=== PATIENT | male | born 1965 | race Two or more races ===

== ENCOUNTER 2023-07-16 09:57 | Emergency (ER) | payer MEDICAID, OTHER, SELFPAY ==
[2023-07-16 10:03] VITALS: BP 170/71; PULSE 51; RESP 16; TEMP 36.6; O2SAT 98; BMI 27.6
[2023-07-16 11:10] VITALS: BP 193/89; PULSE 52; RESP 16; TEMP 36.6; O2SAT 99
--- NOTE | 2023-07-16 11:20 | ECG_ITS ---
Test Reason : HYPERTENSION Blood Pressure : / mmHG Vent. Rate : 051 BPM Atrial Rate : 051 BPM P-R Int : 170 ms QRS Dur : 128 ms QT Int : 450 ms P-R-T Axes : -27 012 -07 degrees QTc Int : 414 ms Sinus bradycardia Right bundle branch block T wave abnormality, consider inferior ischemia Abnormal ECG No previous ECGs available Referred By: Nilam Lewis Electronically Signed By:Declan Madden
[2023-07-16] MEDS: Valsartan 160 MG TABLET PO (11:26)
[2023-07-16] MEDS: hydroCHLOROthiazide 12.5 MG TABLET PO (11:26)
[2023-07-16] MEDS: amLODIPine Besylate 10 MG TABLET PO (11:26)
--- NOTE | 2023-07-16 11:41 | ED.GENADULT ---
HPI - General Adult General Chief complaint: General Medical Stated complaint: High blood pressure Time Seen by Provider: 07/16/23 10:40 Source: patient, family and park interpreter Mode of arrival: ambulatory History of Present Illness HPI narrative: 58-year-old male with longstanding hypertension, recently moved here from [facility], he has been evaluated through the [facility] system and started on his previous medication. Patient states that he has a headache if he does not take his blood pressure medication he otherwise denies any chest pain or visual/speech deficits in denies any unilateral weakness/numbness/tingling. Patient was seen 1 week ago and states that he has been taking his blood pressure medication as prescribed with the exception of this morning. Related Data Allergies Allergy/AdvReac Type Severity Reaction Status Date / Time No Known Allergies Allergy Verified 07/16/23 10:02 Review of Systems Review of Systems: Pertinent positives and negatives as stated in HPI [facility] Past Medical History Source: nursing notes reviewed Social History Social History Alcohol intake: never Smoked in Last 30 Days: No Use of substances other than those prescribed or required for medical reasons: No Advance Directives: No Advance Directives Information Provided: Yes Physical Exam ED Vital Signs: Vital Signs - 24 hr 07/16/23 10:03 07/16/23 11:10 07/16/23 12:03 Temperature 97.9 F 97.9 F Pulse Rate 51 52 54 Respiratory Rate 16 16 16 Blood Pressure 170/71 H 193/89 H 193/89 H Pulse Oximetry 98 99 99 Oxygen Delivery Method Room Air Room Air Room Air 07/16/23 13:05 Temperature Pulse Rate 53 Respiratory Rate 12 Blood Pressure 147/87 H Pulse Oximetry 96 Oxygen Delivery Method Room Air BMI result Body Mass Index 27.6 VITAL SIGNS: Reviewed. GENERAL: Well developed, well nourished, in no acute distress. HEAD: Normocephalic/atraumatic EYES: PERRLA, EOMI EARS: Ext canals without abnormality NOSE: Nares patent bilateral OROPHARYNX: no oral lesions noted, posterior pharynx clear NECK: Supple, no adenopathy LUNGS: Normal breath sounds. No adventitious sounds or accessory muscle use. SpO2<99> CARDIOVASCULAR: Regular rate and rhythm without noted murmurs ABDOMEN: Soft, non-tender, non-distended with bowel sounds. MUSCULOSKELETAL: No tenderness, deformities, or effusions noted on gross inspection. EXTREMITIES: No cyanosis, clubbing or edema. SKIN: Inspection of the skin reveals no rashes NEUROLOGIC: Alert and oriented x 4. Strength and sensation to light touch were grossly intact x 4, no facial asymmetry, no pronator drift, cranial nerves 2-12 are grossly intact. Medications Administered Discontinued Medications Generic Name Dose Route Start Last Admin Trade Name Shaquilleq PRN Reason Stop Dose Admin Amlodipine Besylate 10 mg 07/16/23 11:21 07/16/23 11:26 Amlodipine Besylate 10 Mg Tablet PO 07/16/23 11:22 10 mg ONCE ONE Administration Protocol Hydrochlorothiazide 12.5 mg 07/16/23 11:21 07/16/23 11:26 Hydrochlorothiazide 12.5 Mg Tablet PO 07/16/23 11:22 12.5 mg ONCE ONE Administration Protocol Valsartan 160 mg 07/16/23 11:21 07/16/23 11:26 Valsartan 160 Mg Tablet PO 07/16/23 11:22 160 mg ONCE ONE Administration Protocol Medical Decision Making Medical Decision Making [facility] Narrative: 58-year-old male with history and clinical presentation consistent with headache likely secondary to elevated blood pressure, the does not seem to be any history of alcohol or drug use and on review of EKG there is no evidence of STEMI and changes are likely secondary to chronic hypertension. Will evaluate with lab work, urinalysis there are no focal deficits in so at this time will not proceed with head CT. Patient given Norvasc/valsartan/hydrochlorothiazide. I reviewed all investigations and hematologic indices are grossly within normal limits, there is no leukocytosis or left shift, there is no anemia or thrombocytopenia. Chemistry indices are grossly within normal limits without evidence of ARTURO her electrolytes/liver enzyme abnormalities. Urinalysis is negative for UTI or proteinuria. EKG demonstrates changes consistent with chronic hypertension. 1310: On re-evaluation patient's blood pressure has significantly improved, there are no acute findings to prompt admission at this time and patient was encouraged to follow-up with his primary care doctor. Differential Diagnosis Differential Diagnoses: The differential diagnosis associated with the presentation includes Please see the discussion above Admission/Observation Consideration of admission/observation: Escalation of care including admission/observation considered Please see the discussion above Lab Data [facility] Lab Attestation statement: I reviewed the patient's lab results. Please see the discussion above 07/16/23 11:42 07/16/23 11:42 Labs: Lab Results 07/16/23 07/16/23 Range/Units 11:42 11:48 WBC 6.8 (4.8-10.8) X10*3/uL RBC 5.83 H (4.60-5.80) X10*6/uL Hgb 16.1 (14.0-18.0) g/dl Hct 47.5 (42.0-52.0) % MCV 81.5 (80.0-98.0) fL MCH 27.6 (27.0-33.0) pg MCHC 33.9 (31.0-36.0) g/dl RDW 15.0 (11.0-16.0) % Plt Count 197 (160-400) X10*3/uL MPV 11.3 (9.4-12.4) fL Immature Gran % (Auto) 0.1 (0.0-0.4) % Neut % (Auto) 53.0 (45-73) % Lymph % (Auto) 33.1 (20-40) % [place] % (Auto) 9.0 (2-11) % Eos % (Auto) 3.8 (0-4) % Baso % (Auto) 1.0 (0-2) % Lymph # (Auto) 2.3 (1.2-4.9) X10*3/uL [place] # (Auto) 0.6 (0.1-1.2) X10*3/uL Eos # (Auto) 0.3 (0.0-0.4) X10*3/uL Baso # (Auto) 0.1 (0.0-0.2) X10*3/uL Abs Immat Gran (auto) 0.01 (0.00-0.03) X10*3/uL Absolute Neuts (auto) 3.6 (2.0-8.3) x10*3/uL Absolute Nucleated RBC 0.000 (0.0-0.012) X10*3/uL Nucleated RBC % (auto) 0.0 (0.0-0.2) /100WBC Sodium 140 (135-145) mmol/L Potassium 4.5 (3.3-5.1) mmol/L Chloride 106 (96-108) mmol/L Carbon Dioxide 28 (22-29) mmol/L Anion Gap 11 L (12-20) BUN 15 (9-16) mg/dL Creatinine 0.90 (0.5-1.4) mg/dL Estim Creat Clear Calc 95.4 Estimated GFR > 60 Random Glucose 112 (60-115) mg/dL Calcium 10.0 (8.4-10.2) mg/dL Total Bilirubin 0.6 (0.0-1.0) mg/dL AST 26 (5-37) U/L ALT 49 H (0-40) U/L Alkaline Phosphatase 83 (39-117) U/L Total Protein 7.8 (6.5-8.0) g/dL Albumin 4.5 (3.5-5.0) g/dL Urine Color Yellow Urine Appearance Clear Urine pH 7.0 (5.0-9.0) Ur Specific [place] 1.015 (1.005-1.025) Urine Protein Negative (Neg-Trace) mg/dL Urine Glucose (UA) Negative (Negative) mg/dL Urine Ketones Negative (Negative) mg/dL Urine Blood Negative (Negative) Urine Nitrite Negative (Negative) Ur Leukocyte Esterase Negative (Negative) Independent Interpretation I performed an independent interpretation of an: EKG Interpretation: Sinus bradycardia, HR -51, no STEMI, but RBBB of unknown duration with T-wave abnormality likely secondary to chronic hypertension as there is no complaint of chest pain. AL is within normal limits QRS prolonged-128 and QTC is within normal limits. Chronic Conditions Patient?s care impacted by: Hypertension Critical Care Time Critical Care Time Critical Care Time: Yes Total Critical Care Time: 45 Attestation: I personally attest to this time spent taking care of the patient. Discharge Plan Discharge Clinical Impression: Headache, Hypertension Patient Disposition: Home, Self-Care Instructions: General Headache (ED), Hypertension (ED), DASH Eating Plan (ED) Additional Instructions: 1. Es imperativo que contin?e tomando jeovanny medicamentos para la presi?n arterial todos los d?as. 2. Julia un seguimiento con [place] m?dico de atenci?n primaria lo antes posible. Regrese a la saige de emergencias si los s?ntomas empeoran. 1. It is imperative that you continue to take your blood pressure medication every single day. 2. Follow-up with your primary care doctor at your earliest convenience. Return to the ER for any worsening symptoms. Print Language: Uzbek
[2023-07-16 11:46] LABS: MANUAL DIFF FLAG NO
[2023-07-16 11:48] LABS: Basophils Absolute Auto 0.1 X10*3/uL (0.0-0.2); Eosinophils Absolute Auto 0.3 X10*3/uL (0.0-0.4); Eosinophils Percent Auto 3.8 % (0-4); Hematocrit 47.5 % (42.0-52.0); Hemoglobin 16.1 g/dl (14.0-18.0); Imm Gran Abs Auto 0.01 X10*3/uL (0.00-0.03); Imm Gran Pct Auto 0.1 % (0.0-0.4); Lymphocytes Absolute Auto 2.3 X10*3/uL (1.2-4.9); Lymphocytes Percent Auto 33.1 % (20-40); Mean Corpuscular HGB Conc 33.9 g/dl (31.0-36.0); Mean Corpuscular Hemoglobin 27.6 pg (27.0-33.0); Mean Corpuscular Volume 81.5 fL (80.0-98.0); Mean Platelet Volume 11.3 fL (9.4-12.4); Monocytes Absolute Auto 0.6 X10*3/uL (0.1-1.2); Neutrophils Absolute Auto 3.6 x10*3/uL (2.0-8.3); Platelet Count 197 X10*3/uL (160-400); Red Blood Count 5.83 X10*6/uL (4.60-5.80); White Blood Count 6.8 X10*3/uL (4.8-10.8)
[2023-07-16 11:57] LABS: Appearance Urine Clear; Color Urine Yellow; Glucose Urine UA Negative (Negative); Leukocyte Esterase Urine Negative (Negative); Nitrite Urine Negative (Negative); Specific Gravity - Urine 1.015 (1.005-1.025); Urine Blood Negative (Negative); Urine Ketones Negative (Negative); Urine Protein Negative (Neg-Trace)
[2023-07-16 12:02] LABS: Alanine Aminotransferase 49 U/L (0-40); Albumin Level 4.5 g/dL (3.5-5.0); Alkaline Phosphatase 83 U/L (39-117); Anion Gap 11 (12-20); Aspartate Amino Transferase 26 U/L (5-37); Bilirubin Total 0.6 mg/dL (0.0-1.0); Blood Urea Nitrogen 15 mg/dL (9-16); Carbon Dioxide 28 mmol/L (22-29); Chloride 106 mmol/L (96-108); Creatinine Clr Calc Pharmacy 95.4; Estimated Glomerular Filt Rate > 60; Glucose Random 112 mg/dL (60-115); Potassium 4.5 mmol/L (3.3-5.1); Sodium 140 mmol/L (135-145); Total Protein 7.8 g/dL (6.5-8.0)
[2023-07-16 12:03] VITALS: BP 193/89; PULSE 54; RESP 16; O2SAT 99
[2023-07-16 13:05] VITALS: BP 147/87; PULSE 53; RESP 12; O2SAT 96
== END 2023-07-16 13:43 | disposition home or self-care (01) ==
PROVIDERS: Emergency Provider Student in an Organized Health Care Education/Training Program
DX: R51.9 Headache, unspecified (principal); I10 Essential (primary) hypertension; Z79.899 Other long term (current) drug therapy
CPT/HCPCS: 36415; 80053; 81003; 85025; 93005; 99283; 99284

== ENCOUNTER → 2023-07-16 11:20 | Outpatient (BNV) | payer SELFPAY | PROVIDERS: Emergency Provider Student in an Organized Health Care Education/Training Program; Visit Provider Internal Medicine Cardiovascular Disease | DX: R00.1 Bradycardia, unspecified (principal); R94.31 Abnormal electrocardiogram [ECG] [EKG] | CPT/HCPCS: 93010 ==